=== PATIENT | female | born 2000 | race Caucasian/White ===

== ENCOUNTER → 2022-09-29 | Outpatient (CLI) | payer BC ==
--- NOTE | 2022-09-29 17:45 | CT ---
EXAMINATION TYPE: CT brain wo con DATE OF EXAM: 09/29/2022 COMPARISON: None HISTORY: Sharp pains on rt side of head x [address] DLP: 1041.[address] of the brain was performed. The ventricles, basal cisterns and sulci overlying the cerebral convexities demonstrate a normal appe arance. There is no evidence for intracranial hemorrhage or sulcal effacement. No mass effects are seen. Osseous calvarium is intact. If symptoms persist consider MRI as clinically warranted. IMPRESSION: 1. No acute intracranial process is seen at this time.
== END | disposition home or self-care (01) ==
LOC: RADCTMAIN 17:04
PROVIDERS: ATTEND Family Medicine
DX: G44.86 Cervicogenic headache (principal)
CPT/HCPCS: 70450

== ENCOUNTER → 2023-07-20 | Outpatient (CLI) | payer BC ==
--- NOTE | 2023-07-20 16:54 | US ---
EXAMINATION TYPE: US OB >= 14 wk fetus DATE OF EXAM: 07/20/2023 COMPARISON: None CLINICAL INDICATION: Female, 23 years old with history of decreased movement; Decreased m ovement today. TECHNIQUE: Transabdominal (TA) GESTATIONAL AGE / DATING Physician Established: (35 weeks/5 days) EDC: 08/19/23 Dates by First Scan: No previous this is first scan Dates by Current Scan: (35 weeks/6 days) EDC: 08/18/23 Beta HCG (if available): N/A SURVEY IUP: Single PLACENTA: Anterior PREVIA: No Previa MER: 11.48 cm Normal CERVICAL LENGTH (transabdominal: norm > 3.0cm): Not seen well due to shadowing BIOMETRY PRESENTATION: Breech LIE: Longitudinal BPD: 9.15 cm 37 weeks / 1 days HC: 32.9 cm 37 weeks / 3 days AC: 31.79 cm 35 weeks / 5 days FL: 6.88 cm 35 weeks / 2 days ESTIMATED WEIGHT IN GRAMS: 2810 grams ESTIMATED WEIGHT IN LBS/OZ: 6 lbs. 3 oz. WEIGHT PERCENTAGE BASED ON ESTABLISHED DATES: 56.6% HC/AC: 1.03 Normal FL/AC: 21.65 Normal HEART RATE: 144 bpm RHYTHM: Normal IMPRESSION: Single live intrauterine gestation ultrasound age 35 weeks 6 days.
[2023-07-20 17:19] LABS: Appearance,Urine Clear (Clear); Bilirubin,Urine Negative (Negative); Blood,Urine Negative (Negative); Color,Urine Colorless; Glucose,Urine (UA) Negative (Negative); Ketones,Urine Negative (Negative); Leukocyte Esterase,Urine Negative (Negative); Nitrite,Urine Negative (Negative); Protein,Urine Negative (Negative); Specific Gravity,Urine 1.005 (1.001-1.035); Urobilinogen,Urine <2.0 mg/dL (<2.0)
[2023-07-20 17:58] VITALS: BP 121/75; PULSE 109; RESP 16; TEMP 98
== END ==
LOC: FBPOP 15:27
PROVIDERS: ATTEND Obstetrics & Gynecology
DX: O36.8131 Decreased fetal movements, third trimester, fetus 1 (principal); Z3A.35 35 weeks gestation of pregnancy
CPT/HCPCS: 59025; 76805; 81003; 99213

== ENCOUNTER 2023-08-12 08:30 | Inpatient (IN) | payer BC ==
[2023-08-10 16:12] VITALS: BMI 25.9
[2023-08-12] MEDS: LACTATED RINGERS 1,000 ML IV SCH ×2 (09:00→19:48)
[2023-08-12] MEDS ORDERED: METHYLERGONOVINE 0.2 MG/ML 1 ML AMP IM PRN (09:02)
[2023-08-12] MEDS ORDERED: miSOPROStoL 200 MCG TAB PO PRN (09:02)
[2023-08-12] MEDS ORDERED: TRANEXAMIC 1,000 MG/100ML-NACL 1,000 MG in EMPTY BAG 1 BAG IV PRN (09:02)
[2023-08-12] MEDS ORDERED: OXYTOCIN 10 UNIT/ML 1 ML VIAL IM PRN (09:02)
[2023-08-12] MEDS ORDERED: CARBOPROST TROMETHAMINE 250 MCG/ML 1 ML AMP IM PRN (09:02)
[2023-08-12 09:23] LABS: Basophils % (A) 0 %; Eosinophils # (A) 0.1 k/uL (0-0.7); Eosinophils % (A) 1 %; HCT 38.4 % (34.0-46.0); HGB 13.1 gm/dL (11.4-16.0); Lymphocytes # (A) 2.1 k/uL (1.0-4.8); Lymphocytes % (A) 13 %; MCH 33.7 pg (25.0-35.0); MCHC 34.1 g/dL (31.0-37.0); MCV 98.8 fL (80.0-100.0); Mean Platelet Volume 9.1; Monocytes # (A) 0.8 k/uL (0-1.0); Monocytes % (A) 5 %; Neutrophils # (A) 12.4 k/uL (1.3-7.7); Neutrophils % (A) 79 %; Platelet Count 205 k/uL (150-450); RBC 3.89 m/uL (3.80-5.40); RDW 13.2 % (11.5-15.5); WBC 15.6 k/uL (3.8-10.6)
[2023-08-12 09:25] VITALS: RESP 16
[2023-08-12] MEDS: CITRIC ACID-SODIUM CITRATE 15 ML CUP PO ONE (09:36)
--- NOTE | 2023-08-12 10:00 | P.HPOB ---
History of Present Illness H&P Date: 08/12/23 Chief Complaint: Scheduled , breech presentation Ms. Doran is a 23 year old at 39 weeks and 0 days with EDC of 08/19/2023 by LMP consistent with 7 week US who presents today for scheduled primary section secondary to breech presentation. THe has been uncomplicated otherwise. The fetus measured in the 60%ile for growth at 32 weeks. work-up: blood type AB positive, antibody negative, rubella non-immune, VDRL non-reactive, HBsAg negative, HIV negative, HCV Ab negative, gonorrhea negative, chlamydia negative, 1 hour within normal limits. GBS negative. Patient is s/p TDap on 05/31/2023. Past Medical History Past Medical History: No Reported History History of Any Multi-Drug Resistant Organisms: None Reported Past Surgical History: No Surgical Hx Reported Past Anesthesia/Blood Transfusion Reactions: No Reported Reaction Past Psychological History: No Psychological Hx Reported Smoking Status: Never smoker Past Alcohol Use History: None Reported Past Drug Use History: None Reported - Past Family History Mother Family Medical History: No Reported History Medications and Allergies Home Medications Medication Instructions Recorded Confirmed Type Vit No.179/Iron/Folic 1 tablet PO DAILY 07/20/23 08/12/23 History [ Tablet] Allergies Allergy/AdvReac Type Severity Reaction Status Date / Time No Known Allergies Allergy Verified 08/10/23 15:47 Exam Vital Signs Temp Pulse Resp BP Pulse Ox 08/12/23 09:00 98.4 F 106 H 16 115/72 97 Intake and Output 08/11/23 08/12/23 08/12/23 22:59 06:59 14:59 Other: Weight 62.142 kg Focused physical exam is performed. This is a healthy-appearing in no apparent distress. Breathing is non-labored. Abdomen is gravid and non-tender. Extremities non-tender and non-edematous. heart tones are are reactive and reassuring on NST. Results Result Diagrams: 08/12/23 09:00 Abnormal Lab Results - Last 24 Hours (Table) 08/12/23 Range/Units 09:00 WBC 15.6 H (3.8-10.6) k/uL Neutrophils # 12.4 H (1.3-7.7) k/uL Assessment and Plan Assessment: 23 year old at 39 weeks and 0 days presenting for scheduled primary section for breech presentation Plan: Admit, NPO, IV antibiotics, protocol.
[2023-08-12] MEDS ORDERED: MORPHINE SULFATE (PF) 0.3 MG/0.3 ML SYR ONE (10:06)
[2023-08-12] MEDS ORDERED: fentaNYL (PF) 50 MCG/ML 2 ML AMP ONE (10:06)
[2023-08-12] MEDS ORDERED: OXYTOCIN 10 UNIT/ML 1 ML VIAL ONE (10:06)
[2023-08-12] MEDS ORDERED: KETOROLAC 15 MG/ML 1 ML VIAL ONE (10:06)
[2023-08-12] MEDS ORDERED: ONDANSETRON 4 MG/2 ML VIAL ONE (10:06)
[2023-08-12] MEDS ORDERED: ONDANSETRON 4 MG/2 ML VIAL IVP PRN ×2 (10:50→11:11)
[2023-08-12] MEDS ORDERED: NALOXONE 0.4 MG/ML 1 ML VIAL IV PRN ×2 (10:50→11:11)
[2023-08-12] MEDS ORDERED: diphenhydrAMINE 50 MG/ML 1 ML VIAL IVP PRN ×3 (10:50→11:11)
[2023-08-12] MEDS ORDERED: LANOLIN CREAM 1 GM TUBE TOPICAL PRN (11:11)
[2023-08-12] MEDS ORDERED: diphenhydrAMINE 50 MG CAP PO PRN (11:11)
[2023-08-12] MEDS ORDERED: SIMETHICONE 80 MG CHEWABLE PO PRN (11:11)
[2023-08-12] MEDS ORDERED: diphenhydrAMINE 25 MG CAP PO PRN (11:11)
[2023-08-12] MEDS ORDERED: ZOLPIDEM 5 MG TAB PO PRN (11:11)
[2023-08-12] MEDS ORDERED: METOCLOPRAMIDE 5 MG/ML 2 ML VIAL IVP PRN (11:11)
--- NOTE | 2023-08-12 11:11 | P.OP ---
Date of Procedure: 08/12/23 Preoperative Diagnosis: 1. Term IUP at 39 weeks 2. Complete Breech Presentation Postoperative Diagnosis: Same Procedure(s) Performed: Primary Lower Transverse Section Implants: None Anesthesia: spinal Surgeon: Nita Carlos Aerodynamics Teacher #1: Jame To Estimated Blood Loss (ml): 410 IV fluids (ml): 1,000 Urine output (ml): 400 (clear yellow) Pathology: none sent Condition: stable Disposition: floor Indications for Procedure: Ms. Doran is a 23 year old at 39 weeks gestation with a fetus in complete breech presentation. The options of external cephalic version and primary section were discussed with the patient and she elected for primary seciton. The risks, benefits, and alternatives to section were discussed with the patient including risk of bleeding, infection, damage to surrounding structures including bladder/bowels/ureters, and post-operative VTE. The patient understands these risks and desires to proceed with section. Operative Findings: Colorless amniotic fluid noted. Fetus in complete breech presentation. Normal uterus with a small pedunculated fibroid at the fundus. Normal bilateral fallopian tube and ovaries. Description of Procedure: The patient was taken to the operating room where spinal anesthesia was found to be adequate. Two grams of Ancef were given for infection prophylaxis. She was prepared and draped in the dorsal supine position with a leftward tilt. A Pfannenstiel skin incision was made with the scalpel. The incision was carried down to the fascia. The fascia was incised and extended laterally with Frank scissors. The superior aspect of the fascia was grasped with Andrea clamps. The underlying rectus muscle was dissected off sharply with Frank scissors. In a similar fashion, the inferior aspect of the fascia was elevated with Andrea clamps and the rectus muscle and pyramidalis were dissected off. Excellent hemostasis was achieved with the bovie. The rectus muscle was in the midline down to the level of the pubic symphysis. Pre-peritoneal fatty tissue was bluntly dissected to expose the peritoneum. The peritoneum was found to be free of adherent bowel and entered sharply with Frank scissors. The peritoneal incision was extended superiorly and inferiorly to the bladder reflection with good visualization of the bladder. The bladder blade was inserted and vesicouterine peritoneum was identified. Intraabdominal survey revealed scant, clear peritoneal fluid and the thinned-out lower uterine segment. The bladder blade was repositioned to keep the bladder out of the operative field. The lower uterine segment was incised with a scalpel. The amniotic sac was ruptured with a hemostat clamp and clear fluid was noted. The uterine incision was extended bluntly with lateral and upward traction. The fetus was in complete breech position. The buttocks was palpated and delivered gradually through the hysterotomy. Fundal pressure was continued and both legs were extended using the Pinard maneuver. With gentle pressure the legs and body gradually delivered. Once the scapula could be seen the baby was gently rotated and both arms were delivered using the Loveseat maneuver. Maintaining head flexion in a modified Yvvnwrlw-ptvmwmb-frsy maneuver the head was delivered without difficulty. The mouth and nose were suctioned with a bulb. The cord was clamped and cut. was noted to be spontaneously crying. The was handed off to the pediatric team. IV oxytocin was initiated to facilitate uterine contractions. The placenta was delivered intact with manual massage of uterine fundus. The uterus was then exteriorized and the inside of the uterus was gently wiped with a lap sponge to assure complete removal of placental membranes. The uterine incision was closed with a 0-Polysorb suture in a running locked fashion. A second imbricating layer of 0-Polysorb was placed along the incision. The ovaries and tubes were found to be normal. The uterus, tubes, and ovaries were then gently returned to the abdominal cavity. The blood clots and fluid were wiped out of the abdomen and pelvis with moist laparotomy sponges. The pelvis was copiously suction irrigated.The uterine incision was reinspected and excellent hemostasis was noted. The fascial layer was closed with a 0-Vicryl suture. The subcutaneous tissue was reapproximated with 2-0 Plain Gut. The skin was closed with 4-0 Monocryl in a subcuticular fashion. The patient tolerated the procedure well. All the counts were correct times two. The patient was taken to the recovery room in a stable condition.
[2023-08-12] MEDS: ACETAMINOPHEN TAB 500 MG TAB PO SCH (14:54)
[2023-08-12] MEDS: KETOROLAC 15 MG/ML 1 ML VIAL IVP SCH (18:20)
[2023-08-12] MEDS: IBUPROFEN 600 MG TAB PO SCH (19:47)
[2023-08-12] MEDS: SENNOSIDES-DOCUSATE SODIUM 1 EACH TAB PO SCH (21:06)
[2023-08-13 08:12] LABS: Basophils # (A) 0.1 k/uL (0-0.2); Basophils % (A) 0 %; Eosinophils # (A) 0.1 k/uL (0-0.7); Eosinophils % (A) 0 %; HCT 33.8 % (34.0-46.0); HGB 11.4 gm/dL (11.4-16.0); Lymphocytes # (A) 1.9 k/uL (1.0-4.8); Lymphocytes % (A) 8 %; MCH 33.8 pg (25.0-35.0); MCHC 33.8 g/dL (31.0-37.0); MCV 100.1 fL (80.0-100.0); Monocytes # (A) 1.2 k/uL (0-1.0); Monocytes % (A) 5 %; Neutrophils # (A) 19.5 k/uL (1.3-7.7); Neutrophils % (A) 85 %; Platelet Count 195 k/uL (150-450); RBC 3.37 m/uL (3.80-5.40); RDW 13.1 % (11.5-15.5)
--- NOTE | 2023-08-13 10:01 | P.PN ---
Progress Note - Text Progress Note Date: 08/13/23 (822) Anesthesia Postop day 1 Subjective: Status Post section with Duramorph. Patient seen and examined. Doing well without complaint. VAS 2 out of 10. No nausea or vomiting. Mild pruritus tolerable.. Denies fever. Gross lower extremity strength intact. Without apparent anesthetic complications. Objective: Vital signs reviewed Heart: Regular Rate Lungs: Good chest excursion Abdomen: Appears nondistended Assessment: Status post section with Duramorph postop day 1 Plan: 1. Continue current care with your medical management. Anticipated end to the duration of the Duramorph around surgery time today. You may see increased pain needs around this time. 2. This note was dictated using [employer]HE[employer] software. Please be advised there is a potential for misspellings or errors in remediation bioanalytics consultant.
--- NOTE | 2023-08-13 10:36 | P.PNOBGPC ---
Subjective - Subjective Patient reports: Reports appetite normal, Reports voiding normally, Reports pain well controlled, Reports ambulating normally : doing well Objective - Vital Signs Latest vital signs: Vital Signs Temp Pulse Resp BP Pulse Ox 08/13/23 08:00 98.6 F 78 16 103/75 98 08/12/23 20:00 93 16 115/72 95 08/12/23 18:30 16 99 08/12/23 17:00 16 08/12/23 16:00 98.7 F 97 16 114/70 98 08/12/23 15:50 98 08/12/23 14:49 97.1 F L 79 16 115/62 98 08/12/23 14:47 16 08/12/23 13:50 16 08/12/23 13:03 83 16 112/68 96 08/12/23 12:48 83 16 121/71 97 08/12/23 12:33 88 16 115/71 97 08/12/23 12:18 81 16 118/71 98 08/12/23 12:03 82 16 116/72 97 08/12/23 11:50 16 97 08/12/23 11:48 107 H 16 129/70 97 08/12/23 11:33 96 16 126/58 96 08/12/23 11:18 93 16 129/56 97 08/12/23 11:03 96.9 F L 102 H 16 118/73 97 08/12/23 10:50 16 97 Intake and Output 08/12/23 08/13/23 08/13/23 22:59 06:59 14:59 Output Total 600 1200 Balance -600 -1200 Output: Urine 600 1200 Uretheral (Lu) 400 Other: # Voids 1 - Exam Extremities: Present: normal Abdomen: Present: normal appearance, soft. Absent: distention, tenderness Incision: Present: normal, dry, intact Uterus: Present: normal, firm (The uterine fundus is tonic and appropriately tender just below the umbilicus.) - Labs Labs: Abnormal Lab Results - Last 24 Hours (Table) 08/13/23 Range/Units 07:49 WBC 23.0 H (3.8-10.6) k/uL RBC 3.37 L (3.80-5.40) m/uL Hct 33.8 L (34.0-46.0) % MCV 100.1 H (80.0-100.0) fL Neutrophils # 19.5 H (1.3-7.7) k/uL Monocytes # 1.2 H (0-1.0) k/uL Assessment and Plan (1) Delivery by section Current Visit: Yes Status: Acute Code(s): [id number] - SNOMED Code(s): 686668760 Plan: Continue routine and postoperative care. I have encouraged the patient to ambulate in the hallways routinely. Assuming no complications, I anticipate discharge home tomorrow.
[2023-08-14 08:09] VITALS: BP 108/72; PULSE 86; TEMP 97
--- NOTE | 2023-08-14 11:11 | P.DS ---
Providers Date of admission: 08/12/23 08:30 Expected date of discharge: 08/14/23 Attending physician: Nita Carlos MD Primary care physician: Stated None - Discharge Diagnosis(es) (1) Delivery by section Current Visit: Yes Status: Acute Hospital Course: The patient is a 23-year-old 1 para 0 admitted at 39-0/7 weeks by good dating parameters. She is admitted for primary low-transverse section secondary to breech presentation. She was offered version which she declined. On labor delivery, all signs were reassuring with category 1 heart rate tracing. She was taken to the operating room where she underwent an uncomplicated primary low-transverse section and was delivered of a viable 8 pound 13 ounce baby girl with Apgars of 9 at 1 minute and 9 at 5 minutes. Her and postoperative course was unremarkable with vital signs remaining stable and her temperature was afebrile throughout. She was deemed stable for discharge on and postoperative day #2 and was discharged home to follow-up in the office in 2 weeks for an incision check in 6 weeks routinely. Discharge instructions included calling for any significantly increased bleeding or foul-smelling lochia, significantly increased fever or abdominal pain, peritoneal complaints, breast complaints, incisional complaints, or anything else that concerned her. She was additionally instructed to have nothing in the vagina for at least 6 weeks time to include intercourse and to abstain from any heavy lifting over the same period of time. She was lastly instructed to do no driving until off of all pain medications or 2 weeks time, whichever came first. She understood all of her instructions and agrees to follow-up as noted above. Discharge medications included continued vitamins as well as [id number] analgesic pain medications as needed. She was additionally provided with a prescription for Tylenol 3, 1-2 p.o. every 6 hours as needed pain, #20 dispensed with no refills. Maternal blood type is AB+ and rubella status is nonimmune. She is therefore to receive the MMR vaccination prior to discharge. Discharge hemoglobin and hematocrit were 11.4 and 33.8 respectively Procedures: #1. Primary low-transverse section Patient Condition at Discharge: Stable Plan - Discharge Summary Discharge Rx Participant: Yes New Discharge Prescriptions: New oxyCODONE HCL [Roxicodone] 5 mg PO Q6HR PRN 3 Days #12 tab PRN Reason: Breakthrough Pain Acetaminophen Tab [Tylenol] 650 mg PO Q6H PRN #30 tab PRN Reason: Mild Pain (Scale 1 To 3) Ibuprofen [Motrin] 600 mg PO Q6HR PRN #30 tab PRN Reason: Mild Pain (Scale 1 To 3) No Action Vit No.179/Iron/Folic [ Tablet] 1 tablet PO DAILY Discharge Medication List Vit No.179/Iron/Folic [ Tablet] 1 tablet PO DAILY 07/20/23 [History] Acetaminophen Tab [Tylenol] 650 mg PO Q6H PRN #30 tab 08/12/23 [Rx] Ibuprofen [Motrin] 600 mg PO Q6HR PRN #30 tab 08/12/23 [Rx] oxyCODONE HCL [Roxicodone] 5 mg PO Q6HR PRN 3 Days #12 tab 08/12/23 [Rx] Follow up Appointment(s)/Referral(s): Nita Carlos MD [STAFF PHYSICIAN] - 2 Weeks Activity/Diet/Wound Care/Special Instructions: Instructions 1. Do not begin any exercise program for 3 weeks. 2. Do not resume sexual relations for 6 weeks or longer if uncomfortable. 3. You may take tub baths or showers at any time. 4. You may use tampons if desired after 6 weeks. 5. Keep any areas repaired with stitches clean and dry. 6. If you are not nursing, wear a good fitting, supportive bra during the day and limit fluid intake for at least 1 week to prevent breast engorgement. 7. Call the office, , within the next week to make appointment for your 6 week checkup if it has not already been made. 8. Report any of the following occurrences to the doctor promptly: a. Heavy, excessive bleeding b. Chills, fever c. Burning or frequency of urination d. Pain or redness and breasts if nursing e. Increasing pain or swelling of vulva (stitches). In addition to the above instructions, the following additional should be followed: 1. No heavy lifting or straining (exercising) until after 6 week checkup. 2. Keep abdominal incision clean and dry: You may wear a dressing if more comfortable. 3. Make office appointment for 2 weeks after delivery date. Discharge Disposition: HOME SELF-CARE
== END 2023-08-14 13:35 | disposition home or self-care (01) | DRG 788 ==
LOC: 4FBP 08:30
PROVIDERS: ADMIT Obstetrics & Gynecology; ATTEND Obstetrics & Gynecology
PROC: 4A0HXCZ Measurement of Products of Conception, Cardiac Rate, External Approach (ICD-10-PCS; 2023-08-12)
PROC: 10D00Z1 Extraction of Products of Conception, Low, Open Approach (ICD-10-PCS; principal; 2023-08-12 10:00)
DX: O32.1XX0 Maternal care for breech presentation, not applicable or unspecified (principal); O34.13 Maternal care for benign tumor of corpus uteri, third trimester; Z3A.39 39 weeks gestation of pregnancy; Z37.0 Single live birth; L29.9 Pruritus, unspecified; D25.9 Leiomyoma of uterus, unspecified; O99.73 Diseases of the skin and subcutaneous tissue complicating the puerperium
CPT/HCPCS: 85025; 86850; 86900; 86901

== ENCOUNTER 2023-12-12 14:42 | Emergency (ER) | payer BC ==
--- NOTE | 2023-12-12 15:29 | ED ---
Back Pain HPI - General Chief Complaint: Back Pain/Injury Stated Complaint: Abd/back pain Time Seen by Provider: 12/12/23 15:23 Source: patient, family, RN notes reviewed Limitations: no limitations - History of Present Illness Initial Comments: 23-year-old female presented to the ER with a chief complaint of right flank pain. Family aiding in HPI. Patient reports pain started around 1 :30 PM and has been persistent and sharp. She endorses mild radiation to right abdomen. A dmits to associated nausea and vomiting. Patient states pain is exacerbated with laying flat and she is only comfortable in the position. Denies any hematuria but does state an increase in urinary frequency yesterday. She attempted to take prescribed oxycodone from recent section but was unable to keep it down. She denies a personal history of kidney stones but does state there is an extensive family history. She denies any fevers, chills, chest pain, shortness of breath or peripheral edema. - Related Data Home Medications Medication Instructions Recorded Confirmed Vit No.179/Iron/Folic 1 tablet PO DAILY 07/20/23 08/12/23 [ Tablet] Previous Rx's Medication Instructions Recorded Acetaminophen Tab [Tylenol] 650 mg PO Q6H PRN #30 tab 08/12/23 Ibuprofen [Motrin] 600 mg PO Q6HR PRN #30 tab 08/12/23 oxyCODONE HCL [Roxicodone] 5 mg PO Q6HR PRN 3 Days #12 tab 08/12/23 HYDROcodone/APAP 5-325MG [[place] 5] 1 each PO Q6HR PRN #12 tab 12/12/23 Ondansetron Odt [Zofran Odt] 4 mg PO Q8HR PRN #10 tab 12/12/23 Tamsulosin [Flomax] 0.4 mg PO DAILY #7 cap 12/12/23 Allergies Allergy/AdvReac Type Severity Reaction Status Date / Time No Known Allergies Allergy Verified 12/12/23 14:57 Review of Systems ROS Statement: Those systems with pertinent positive or pertinent negative responses have been documented in the HPI. ROS Other: All systems not noted in ROS Statement are negative. Past Medical History Past Medical History: No Reported History History of Any Multi-Drug Resistant Organisms: None Reported Past Surgical History: No Surgical Hx Reported Additional Past Surgical History / Comment(s): Past Anesthesia/Blood Transfusion Reactions: No Reported Reaction Past Psychological History: No Psychological Hx Reported Smoking Status: Never smoker Past Alcohol Use History: None Reported Past Drug Use History: None Reported - Past Family History Mother Family Medical History: No Reported History General Exam Limitations: no limitations General appearance: alert, in no apparent distress Respiratory exam: Present: normal lung sounds bilaterally. Absent: respiratory distress, wheezes, rales, rhonchi, stridor Cardiovascular Exam: Present: regular rate, normal rhythm, normal heart sounds. Absent: systolic murmur, diastolic murmur, rubs, gallop, clicks GI/Abdominal exam: Present: soft, tenderness (right ), normal bowel sounds Back exam: Present: normal inspection Neurological exam: Present: alert, oriented X3, CN II-XII intact Skin exam: Present: warm, dry, intact, normal color. Absent: rash Course Vital Signs 12/12/23 12/12/23 12/12/23 14:53 16:42 19:06 Temperature 98.0 F 98.9 F Pulse Rate 79 117 H 76 Respiratory 17 18 Rate Blood Pressure 123/77 117/74 121/75 O2 Sat by Pulse 99 100 Oximetry Medical Decision Making - Medical Decision Making Was pt. sent in by a medical professional or institution (, PA, [employer], urgent care, hospital, or senior living...) When possible be specific @ -No Did you speak to anyone other than the patient for history (EMS, parent, family, police, friend...)? What history was obtained from this source @ -Family aiding in HPI and PMHx. Did you review nursing and triage notes (agree or disagree)? Why? @ -I reviewed and agree with nursing and triage notes Were old charts reviewed (outside hosp., previous admission, EMS record, old EKG, old radiological studies, urgent care reports/EKG's, senior living records)? Report findings @ -No old charts were reviewed Differential Diagnosis (chest pain, altered mental status, abdominal pain women, abdominal pain men, vaginal bleeding, weakness, fever, dyspnea, syncope, headache, dizziness, GI bleed, back pain, seizure, CVA, palpatations, mental health, musculoskeletal)? @ -Differential Abdominal Pain Women: Appendicitis, Cholecystitis, diverticulosis, ischemic bowel, pancreatitis, hepatitis, UTI, gastroenteritis, AAA, incarcerated hernia, bowel obstruction, constipation, inflammatory bowel, hepatitis, peptic ulcer disease, splenic infarction, perforated viscus, vulvitis, ovarian torsion, PID, kidney stone, placenta abruption, this is not meant to be an all-inclusive list EKG interpreted by me (3pts min.). @ -None X-rays interpreted by me (1pt min.). @ -None done CT interpreted by me (1pt min.). @ -CT abdomen pelvis significant for right hydronephrosis secondary to obstructing 6 mm calculus at the UVJ. Additional nonobstructing 2 mm. No left- sided hydronephrosis or obstructive uropathy. U/S interpreted by me (1pt. min.). @ -None done What testing was considered but not performed or refused? (CT, X-rays, U/S, labs)? Why? @ -None What meds were considered but not given or refused? Why? @ -None Did you discuss the management of the patient with other professionals (professionals i.e. , PA, [employer], lab, RT, psych nurse, hospice social worker, loan inspector, teacher, investment officer, transplant case manager)? Give summary @ -No Was smoking cessation discussed for >3mins.? @ -No Was critical care preformed (if so, how long)? @ -No Were there social determinants of health that impacted care today? How? (Homelessness, low income, unemployed, alcoholism, drug addiction, transportation, low edu. Level, literacy, decrease access to med. care, penitentiary, rehab)? @ -No Was there de-escalation of care discussed even if they declined (Discuss DNR or withdrawal of care, Hospice)? DNR status @ -No What co-morbidities impacted this encounter? (DM, HTN, Smoking, COPD, CAD, Cancer, CVA, ARF, Chemo, Hep., AIDS, mental health diagnosis, sleep apnea, morbid obesity)? @ -None Was patient admitted / discharged? Hospital course, mention meds given and route, prescriptions, significant lab abnormalities, going to OR and other pert inent info. @ -Discharge. 23-year-old female presented to the ER with a chief complaint of right flank pain. History and physical exam completed. Vitals stable. Exam remarkable for right lower quadrant abdominal tenderness. No CVA tenderness. Patient no signs of acute distress and nontoxic-appearing. Laboratory studies obtained unremarkable. Urine analysis significant of 2+ ketones concerning of dehydration. Urine hCG negative. CT abdomen pelvis performed remarkable for right hydronephrosis secondary to obstructing 6 mm calculus at the UVJ. Patient received IV fluids, antiemetics and analgesics medication with improvement of symptoms. Upon reevaluation, patient resting comfortably in exam room in no signs of acute distress. Results discussed with patient, all questions answered. Flomax, [place], Zofran prescribed. Strict return parameters discussed. Patient discharged in stable condition with follow-up to PCP. Patient verbally expressed understanding and agreement with care plan. Case discussed with ED attending, Dr. Kate. Undiagnosed new problem with uncertain prognosis? @ -No Drug Therapy requiring intensive monitoring for toxicity (Heparin, Nitro, Insulin, Cardizem)? @ -No Were any procedures done? @ -No Diagnosis/symptom? @ -Right hydronephrosis secondary to obstructing calculus Acute, or Chronic, or Acute on Chronic? @ -Acute Uncomplicated (without systemic symptoms) or Complicated (systemic symptoms)? @ -Uncomplicated Side effects of treatment? @ -No Exacerbation, Progression, or Severe Exacerbation? @ -No Poses a threat to life or bodily function? How? (Chest pain, [place], [place], pneumonia, PE, COPD, DKA, ARF, appy, cholecystitis, CVA, Diverticulitis, Homicidal, Suicidal, threat to staff... and all critical care pts) @ -No - Lab Data Result diagrams: 12/12/23 15:36 12/12/23 15:36 Lab Results 12/12/23 12/12/23 12/12/23 Range/Units 15:36 15:36 15:36 WBC 10.0 (3.8-10.6) k/uL RBC 4.21 (3.80-5.40) m/uL Hgb 12.8 (11.4-16.0) gm/dL Hct 39.9 (34.0-46.0) % MCV 94.8 (80.0-100.0) fL MCH 30.3 (25.0-35.0) pg MCHC 32.0 (31.0-37.0) g/dL RDW 12.2 (11.5-15.5) % Plt Count 248 (150-450) k/uL MPV 8.4 Neutrophils % 64 % Lymphocytes % 28 % Monocytes % 5 % Eosinophils % 1 % Basophils % 0 % Neutrophils # 6.4 (1.3-7.7) k/uL Lymphocytes # 2.8 (1.0-4.8) k/uL Monocytes # 0.5 (0-1.0) k/uL Eosinophils # 0.1 (0-0.7) k/uL Basophils # 0.0 (0-0.2) k/uL Sodium (137-145) mmol/L Potassium (3.5-5.1) mmol/L Chloride (98-107) mmol/L Carbon Dioxide (22-30) mmol/L Anion Gap mmol/L BUN (7-17) mg/dL Creatinine (0.52-1.04) mg/dL Est GFR (CKD-EPI)AfAm (>60 ml/min/1.73 sqM) Est GFR (CKD-EPI)NonAf (>60 ml/min/1.73 sqM) Glucose (74-99) mg/dL Plasma Lactic Acid [place] (0.7-2.0) mmol/L Calcium (8.4-10.2) mg/dL Total Bilirubin (0.2-1.3) mg/dL AST (14-36) U/L ALT (4-34) U/L Alkaline Phosphatase (38-126) U/L Total Protein (6.3-8.2) g/dL Albumin (3.5-5.0) g/dL Urine Color Colorless Urine Appearance Clear (Clear) Urine pH 8.5 H (5.0-8.0) Ur Specific [place] 1.020 (1.001-1.035) Urine Protein Negative (Negative) Urine Glucose (UA) Negative (Negative) Urine Ketones 2+ H (Negative) Urine Blood Negative (Negative) Urine Nitrite Negative (Negative) Urine Bilirubin Negative (Negative) Urine Urobilinogen <2.0 (<2.0) mg/dL Ur Leukocyte Esterase Negative (Negative) Urine HCG, Qual Not Detected (Not Detectd) 12/12/23 12/12/23 Range/Units 15:36 15:36 WBC (3.8-10.6) k/uL RBC (3.80-5.40) m/uL Hgb (11.4-16.0) gm/dL Hct (34.0-46.0) % MCV (80.0-100.0) fL MCH (25.0-35.0) pg MCHC (31.0-37.0) g/dL RDW (11.5-15.5) % Plt Count (150-450) k/uL MPV Neutrophils % % Lymphocytes % % Monocytes % % Eosinophils % % Basophils % % Neutrophils # (1.3-7.7) k/uL Lymphocytes # (1.0-4.8) k/uL Monocytes # (0-1.0) k/uL Eosinophils # (0-0.7) k/uL Basophils # (0-0.2) k/uL Sodium 141 (137-145) mmol/L Potassium 4.0 (3.5-5.1) mmol/L Chloride 108 H (98-107) mmol/L Carbon Dioxide 23 (22-30) mmol/L Anion Gap 10 mmol/L BUN 13 (7-17) mg/dL Creatinine 0.61 (0.52-1.04) mg/dL Est GFR (CKD-EPI)AfAm >90 (>60 ml/min/1.73 sqM) Est GFR (CKD-EPI)NonAf >90 (>60 ml/min/1.73 sqM) Glucose 85 (74-99) mg/dL Plasma Lactic Acid [place] 1.5 (0.7-2.0) mmol/L Calcium 9.3 (8.4-10.2) mg/dL Total Bilirubin 0.3 (0.2-1.3) mg/dL AST 30 (14-36) U/L ALT 32 (4-34) U/L Alkaline Phosphatase 96 (38-126) U/L Total Protein 7.2 (6.3-8.2) g/dL Albumin 4.5 (3.5-5.0) g/dL Urine Color Urine Appearance (Clear) Urine pH (5.0-8.0) Ur Specific [place] (1.001-1.035) Urine Protein (Negative) Urine Glucose (UA) (Negative) Urine Ketones (Negative) Urine Blood (Negative) Urine Nitrite (Negative) Urine Bilirubin (Negative) Urine Urobilinogen (<2.0) mg/dL Ur Leukocyte Esterase (Negative) Urine HCG, Qual (Not Detectd) - Radiology Data Radiology results: report reviewed, image reviewed Disposition Clinical Impression: Hydronephrosis concurrent with and due to calculi of kidney and ureter Disposition: HOME SELF-CARE Condition: Stable Instructions (If sedation given, give patient instructions): Kidney Stones (ED) Additional Instructions: If taking [place] for pain control I recommend not breast-feeding, pump and dump for 1 day after use. You may take Zofran for nausea. Take Flomax as prescribed. Follow-up with PCP. Return to the ER for any new or worsening concerns. Prescriptions: Tamsulosin [Flomax] 0.4 mg PO DAILY #7 cap HYDROcodone/APAP 5-325MG [[place] 5] 1 each PO Q6HR PRN #12 tab PRN Reason: Pain Ondansetron Odt [Zofran Odt] 4 mg PO Q8HR PRN #10 tab PRN Reason: Nausea Is patient prescribed a controlled substance at d/c from ED?: Yes When asked, does pt state using other controlled substances?: No If prescribed controlled substance>3 days was MAPS reviewed?: Prescribed <3 Days If opioid is for acute pain is fill amount 7 days or less?: Yes If Rx opioid, was Start Talking consent form obtained?: Yes Referrals: Nell Madrigal MD [Primary Care Provider] - 1-2 days Time of Disposition: 18:49
[2023-12-12] MEDS: ONDANSETRON 4 MG/2 ML VIAL IVP STA (15:31)
[2023-12-12] MEDS: SODIUM CHLORIDE 0.9% 1,000 ML IV STA ×2 (15:31→18:10)
[2023-12-12] MEDS: HYDROmorphone 0.5 MG/0.5 ML SYRINGE IVP STA (15:32)
[2023-12-12 15:55] LABS: Basophils % (A) 0 %; Eosinophils # (A) 0.1 k/uL (0-0.7); Eosinophils % (A) 1 %; HCT 39.9 % (34.0-46.0); HGB 12.8 gm/dL (11.4-16.0); Lymphocytes # (A) 2.8 k/uL (1.0-4.8); Lymphocytes % (A) 28 %; MCH 30.3 pg (25.0-35.0); MCV 94.8 fL (80.0-100.0); Mean Platelet Volume 8.4; Monocytes # (A) 0.5 k/uL (0-1.0); Monocytes % (A) 5 %; Neutrophils # (A) 6.4 k/uL (1.3-7.7); Neutrophils % (A) 64 %; Platelet Count 248 k/uL (150-450); RBC 4.21 m/uL (3.80-5.40); RDW 12.2 % (11.5-15.5)
[2023-12-12 16:11] LABS: ALT 32 U/L (4-34); AST 30 U/L (14-36); African American GFR (CKD) >90 (>60 ml/min/1.73 sqM); Albumin 4.5 g/dL (3.5-5.0); Alkaline Phosphatase 96 U/L (38-126); Anion Gap 10 mmol/L; Blood Urea Nitrogen 13 mg/dL (7-17); Calcium 9.3 mg/dL (8.4-10.2); Carbon Dioxide 23 mmol/L (22-30); Chloride 108 mmol/L (98-107); Glucose 85 mg/dL (74-99); Non-African American GFR(CKD) >90 (>60 ml/min/1.73 sqM); Sodium 141 mmol/L (137-145); Total Bilirubin 0.3 mg/dL (0.2-1.3); Total Protein 7.2 g/dL (6.3-8.2)
[2023-12-12 16:43] LABS: Appearance,Urine Clear (Clear); Bilirubin,Urine Negative (Negative); Blood,Urine Negative (Negative); Color,Urine Colorless; Glucose,Urine (UA) Negative (Negative); Leukocyte Esterase,Urine Negative (Negative); Nitrite,Urine Negative (Negative); PH, Urine 8.5 (5.0-8.0); Protein,Urine Negative (Negative); Urobilinogen,Urine <2.0 mg/dL (<2.0)
[2023-12-12] MEDS: HYDROmorphone 1 MG/ML 1 ML SYRINGE IVP STA (16:45)
[2023-12-12] MEDS: METOCLOPRAMIDE 5 MG/ML 2 ML VIAL IVP STA (16:47)
[2023-12-12 17:06] LABS: Ketones,Urine 2+ (Negative)
--- NOTE | 2023-12-12 18:28 | CT ---
EXAMINATION TYPE: CT abdomen pelvis wo con CT DLP: 320 mGycm, Automated exposure control for dose reduction was used. DATE OF EXAM: 12/12/2023 5:45 PM COMPARISON: None. CLINICAL INDICATION:Female, 23 years old with history of r flank pain; Right flank pain TECHNIQUE: Axial CT abdomen pelvis wo con;Sagittal and coronal reformats were created on a separate workstation. Contrast used: mL of , (none if empty) Oral contrast used: without Oral Contrast (none if empty) FINDINGS: LOWER CHEST: Unremarkable ABDOMEN LIVER: Unremarkable GALLBLADDER AND BILE DUCTS: Unremarkable. PANCREAS: Unremarkable. SPLEEN: Unremarkable. ADRENAL GLANDS: Unremarkable. KIDNEYS AND URETERS: Mild right hydronephrosis secondary obstructing 6 mm calculus at the ureterovesi cular junction. Additional nonobstructing 2 mm. No left hydronephrosis or obstructive uropathy. PELVIS BLADDER: Unremarkable REPRODUCTIVE: Unremarkable. ABDOMEN & PELVIS STOMACH AND BOWEL: No evidence of bowel obstruction. PERITONEUM/RETROPERITONEUM: No evidence of pneumoperitoneum or free fluid. VASCULATURE: No evidence of aortic aneurysm. MUSCULOSKELETAL: No acute osseous abnormalities LYMPH NODES: No gross evidence for lymphadenopathy. SOFT TISSUE/ABDOMINAL WALL: Unremarkable IMPRESSION: Mild right hydronephrosis secondary obstructing 6 mm calculus at the ureterovesicular junction. Addit ional nonobstructing 2 mm. No left hydronephrosis or obstructive uropathy.
[2023-12-12] MEDS: SCOPOLAMINE 1 MG/72 HR PATCH TRANSDERM STA (18:34)
[2023-12-12 19:08] VITALS: BP 121/75; PULSE 76; RESP 18; TEMP 98.9
== END 2023-12-12 19:08 | disposition home or self-care (01) ==
LOC: EC 14:42
DX: N13.2 Hydronephrosis with renal and ureteral calculous obstruction (principal)
CPT/HCPCS: 36415; 80053; 83605; 85025; 81003; 81025; 74176; 99284; 96374; 96375 ×2; 96376; 96361 ×2; J2765; J2405; J1170 ×2

== ENCOUNTER 2023-12-13 11:39 | Observation (INO) | payer BC ==
--- NOTE | 2023-12-13 11:55 | ED ---
Abdominal Pain HPI - General Chief Complaint: Abdominal Pain Stated Complaint: Recheck-abd pain Time Seen by Provider: 12/13/23 11:41 Source: patient, RN notes reviewed Mode of arrival: ambulatory Limitations: no limitations - History of Present Illness Initial Comments: This is a 23-year-old female who presents to the emergency department for abdominal pain and right flank pain. Patient was evaluated here yesterday for right flank pain and diagnosed with a kidney stone. She was given a prescription for nausea medication and pain medication, but states that she is unable to manage her symptoms at home and continues to vomit. She does note that she had a kidney stone about 5 years ago but was able to pass it on her own. Symptoms are much more severe now than they had been. She has not measured any fevers or chills. MD Complaint: abdominal pain, flank pain - Related Data Home Medications Medication Instructions Recorded Confirmed Vit No.179/Iron/Folic 1 tablet PO DAILY 07/20/23 12/13/23 [ Tablet] HYDROcodone/APAP 5-325MG [[place] 5] 1 tab PO Q6HR PRN 12/13/23 12/13/23 Previous Rx's Medication Instructions Recorded Ondansetron Odt [Zofran Odt] 4 mg PO Q8HR PRN #10 tab 12/12/23 Tamsulosin [Flomax] 0.4 mg PO DAILY #7 cap 12/12/23 Allergies Allergy/AdvReac Type Severity Reaction Status Date / Time No Known Allergies Allergy Verified 12/13/23 15:00 Review of Systems ROS Statement: Those systems with pertinent positive or pertinent negative responses have been documented in the HPI. ROS Other: All systems not noted in ROS Statement are negative. Past Medical History Past Medical History: No Reported History History of Any Multi-Drug Resistant Organisms: None Reported Past Surgical History: No Surgical Hx Reported Additional Past Surgical History / Comment(s): Past Anesthesia/Blood Transfusion Reactions: No Reported Reaction Past Psychological History: No Psychological Hx Reported Smoking Status: Never smoker Past Alcohol Use History: None Reported Past Drug Use History: None Reported - Past Family History Mother Family Medical History: No Reported History General Exam Limitations: no limitations General appearance: alert, in distress Head exam: Present: atraumatic, normocephalic, normal inspection Respiratory exam: Present: normal lung sounds bilaterally. Absent: respiratory distress, wheezes, rales, rhonchi, stridor Cardiovascular Exam: Present: regular rate, normal rhythm, normal heart sounds. Absent: systolic murmur, diastolic murmur, rubs, gallop, clicks GI/Abdominal exam: Present: soft, tenderness (RLQ). Absent: distended Back exam: Present: CVA tenderness (R). Absent: CVA tenderness (L) Neurological exam: Present: alert, oriented X3, CN II-XII intact Psychiatric exam: Present: normal affect, normal mood Skin exam: Present: warm, dry, intact, normal color. Absent: rash Course Vital Signs 12/13/23 11:39 Temperature 99 F Pulse Rate 109 H Respiratory 18 Rate Blood Pressure 109/73 O2 Sat by Pulse 100 Oximetry Medical Decision Making - Medical Decision Making This is a 23 year old female who presents to the emergency department for right flank pain. Was pt. sent in by a medical professional or institution? @ -No Did you speak to anyone other than the patient for history? @ -No Did you review nursing and triage notes? @ -Yes, and I agree, it is accurate with regards to the patient's symptoms. Were old charts reviewed? @ -CT scan of the abdomen and pelvis from yesterday demonstrating mild right hydronephrosis secondary to obstructing 6 mm calculus at the UVJ. Differential Diagnosis? @ -Differential Abdominal Pain Women: Appendicitis, Cholecystitis, diverticulosis, ischemic bowel, pancreatitis, hepatitis, UTI, gastroenteritis, AAA, incarcerated hernia, bowel obstruction, constipation, inflammatory bowel, hepatitis, peptic ulcer disease, splenic infarction, perforated viscus, vulvitis, ovarian torsion, PID, kidney stone, placenta abruption, this is not meant to be an all-inclusive list EKG interpreted by me (3pts min.)? @ -Not obtained X-rays interpreted by me (1pt min.)? @ -Not obtained CT interpreted by me (1pt min.)? @ -Not obtained U/S interpreted by me (1pt. min.)? @ -Not obtained What testing was considered but not performed? (CT, X-rays, U/S, labs)? Why? @ -None What meds were considered but not given? Why? @ -None Did you discuss the management of the patient with other professionals? @ -Yes, Dr. Adkins, urology, who will take the patient to the OR for stone removal due to patient's intractable symptoms. Did you reconcile home meds? @ -Yes Was smoking cessation discussed for >3mins.? @ -No Was critical care preformed (if so, how long)? @ -No Were there social determinants of health that impacted care today? How? (Homelessness, low income, unemployed, alcoholism, drug addiction, transportation, low edu. Level, literacy, decrease access to med. care, half-way, rehab)? @ -No Was there de-escalation of care discussed even if they declined? (Discuss DNR or withdrawal of care, Hospice)? @ -No What co-morbidities impacted this encounter? (DM, HTN, Smoking, COPD, CAD, Cancer, CVA, Hep., AIDS, mental health diagnosis, sleep apnea, morbid obesity)? @ -None Was patient admitted / discharged? @ -Admitted. Lab work demonstrates leukocytosis and was otherwise unremarkable. Urinalysis negative for signs of infection. CT scan of the abdomen and pelvis from yesterday reviewed demonstrating hydronephrosis secondary to obstructing 6 mm calculus at the UVJ. Case discussed with Dr. Adkins, urology, given the patient's failure of outpatient management in terms of pain and intractable nausea and vomiting. He will take patient to the OR later today for stone removal. Patient kept NPO. Blood cultures obtained and she was given 2 g of ceftriaxone along with IV fluids. Undiagnosed new problem with uncertain prognosis? @ -None Drug Therapy requiring intensive monitoring for toxicity (Heparin, Nitro, Insuli n, Cardizem)? @ -None Were any procedures done? @ -None Diagnosis/symptom? @ -Right ureteral calculus, intractable abdominal pain, intractable nausea and vomiting Acute, or Chronic, or Acute on Chronic? @ -Acute Uncomplicated (without systemic symptoms) or Complicated (systemic symptoms)? @ -Complicated Side effects of treatment? @ -None Exacerbation, Progression, or Severe Exacerbation] @ -Not applicable Poses a threat to life or bodily function? @ -Yes, patient unable to function due to pain. This case was discussed in detail with the attending ED physician, Dr. Tabares. Presentation, findings, and treatment plan discussed in detail as well. - Lab Data Result diagrams: 12/13/23 11:52 12/13/23 11:52 Lab Results 12/13/23 12/13/2324 Range/Units 11:52 11:52 11:52 WBC 15.0 H (3.8-10.6) k/uL RBC 4.32 (3.80-5.40) m/uL Hgb 13.6 (11.4-16.0) gm/dL Hct 41.8 (34.0-46.0) % MCV 96.7 (80.0-100.0) fL MCH 31.4 (25.0-35.0) pg MCHC 32.5 (31.0-37.0) g/dL RDW 12.3 (11.5-15.5) % Plt Count 290 (150-450) k/uL MPV 8.4 Neutrophils % 82 % Lymphocytes % 10 % Monocytes % 7 % Eosinophils % 0 % Basophils % 0 % Neutrophils # 12.2 H (1.3-7.7) k/uL Lymphocytes # 1.6 (1.0-4.8) k/uL Monocytes # 1.1 H (0-1.0) k/uL Eosinophils # 0.0 (0-0.7) k/uL Basophils # 0.0 (0-0.2) k/uL Sodium 139 (137-145) mmol/L Potassium 4.4 (3.5-5.1) mmol/L Chloride 107 (98-107) mmol/L Carbon Dioxide 14 L (22-30) mmol/L Anion Gap 18 mmol/L BUN 17 (7-17) mg/dL Creatinine 0.90 (0.52-1.04) mg/dL Est GFR (CKD-EPI)AfAm >90 (>60 ml/min/1.73 sqM) Est GFR (CKD-EPI)NonAf 90 (>60 ml/min/1.73 sqM) Glucose 74 (74-99) mg/dL Plasma Lactic Acid [place] (0.7-2.0) mmol/L Calcium 10.0 (8.4-10.2) mg/dL Total Bilirubin 1.5 H (0.2-1.3) mg/dL AST 25 (14-36) U/L ALT 29 (4-34) U/L Alkaline Phosphatase 96 (38-126) U/L Total Protein 7.7 (6.3-8.2) g/dL Albumin 5.1 H (3.5-5.0) g/dL Amylase 62 (30-110) U/L Lipase 146 (23-300) U/L HCG, Qual Not Detected Urine Color Light Yellow Urine Appearance Clear (Clear) Urine pH 6.0 (5.0-8.0) Ur Specific [place] 1.031 (1.001-1.035) Urine Protein 1+ H (Negative) Urine Glucose (UA) Negative (Negative) Urine Ketones 4+ H (Negative) Urine Blood Small H (Negative) Urine Nitrite Negative (Negative) Urine Bilirubin Negative (Negative) Urine Urobilinogen <2.0 (<2.0) mg/dL Ur Leukocyte Esterase Negative (Negative) Urine RBC 7 H (0-5) /hpf Urine WBC 14 H (0-5) /hpf Ur Squamous Epith Cells 1 (0-4) /hpf Urine Mucus Rare H (None) /hpf Urine HCG, Qual (Not Detectd) 12/13/23 12/13/23 Range/Units 11:52 11:52 WBC (3.8-10.6) k/uL RBC (3.80-5.40) m/uL Hgb (11.4-16.0) gm/dL Hct (34.0-46.0) % MCV (80.0-100.0) fL MCH (25.0-35.0) pg MCHC (31.0-37.0) g/dL RDW (11.5-15.5) % Plt Count (150-450) k/uL MPV Neutrophils % % Lymphocytes % % Monocytes % % Eosinophils % % Basophils % % Neutrophils # (1.3-7.7) k/uL Lymphocytes # (1.0-4.8) k/uL Monocytes # (0-1.0) k/uL Eosinophils # (0-0.7) k/uL Basophils # (0-0.2) k/uL Sodium (137-145) mmol/L Potassium (3.5-5.1) mmol/L Chloride (98-107) mmol/L Carbon Dioxide (22-30) mmol/L Anion Gap mmol/L BUN (7-17) mg/dL Creatinine (0.52-1.04) mg/dL Est GFR (CKD-EPI)AfAm (>60 ml/min/1.73 sqM) Est GFR (CKD-EPI)NonAf (>60 ml/min/1.73 sqM) Glucose (74-99) mg/dL Plasma Lactic Acid [place] 1.5 (0.7-2.0) mmol/L Calcium (8.4-10.2) mg/dL Total Bilirubin (0.2-1.3) mg/dL AST (14-36) U/L ALT (4-34) U/L Alkaline Phosphatase (38-126) U/L Total Protein (6.3-8.2) g/dL Albumin (3.5-5.0) g/dL Amylase (30-110) U/L Lipase (23-300) U/L HCG, Qual Urine Color Urine Appearance (Clear) Urine pH (5.0-8.0) Ur Specific [place] (1.001-1.035) Urine Protein (Negative) Urine Glucose (UA) (Negative) Urine Ketones (Negative) Urine Blood (Negative) Urine Nitrite (Negative) Urine Bilirubin (Negative) Urine Urobilinogen (<2.0) mg/dL Ur Leukocyte Esterase (Negative) Urine RBC (0-5) /hpf Urine WBC (0-5) /hpf Ur Squamous Epith Cells (0-4) /hpf Urine Mucus (None) /hpf Urine HCG, Qual Not Detected (Not Detectd) - Radiology Data Radiology results: report reviewed, image reviewed Disposition Clinical Impression: Right ureteral calculus, Intractable abdominal pain, Intractable nausea and vomiting Disposition: ADMITTED IP TO THIS HOSP
[2023-12-13] MEDS: SODIUM CHLORIDE 0.9% 1,000 ML IV STA (12:09)
[2023-12-13] MEDS: KETOROLAC 15 MG/ML 1 ML VIAL IVP STA (12:10)
[2023-12-13] MEDS: ONDANSETRON 4 MG/2 ML VIAL IVP STA (12:10)
[2023-12-13] MEDS: MORPHINE SULFATE 4 MG/ML SYRINGE IVP STA (12:11)
[2023-12-13 12:31] LABS: ALT 29 U/L (4-34); AST 25 U/L (14-36); African American GFR (CKD) >90 (>60 ml/min/1.73 sqM); Albumin 5.1 g/dL (3.5-5.0); Alkaline Phosphatase 96 U/L (38-126); Amylase 62 U/L (30-110); Anion Gap 18 mmol/L; Appearance,Urine Clear (Clear); Bilirubin,Urine Negative (Negative); Blood Urea Nitrogen 17 mg/dL (7-17); Blood,Urine Small (Negative); Carbon Dioxide 14 mmol/L (22-30); Chloride 107 mmol/L (98-107); Color,Urine Light Yellow; Glucose 74 mg/dL (74-99); Glucose,Urine (UA) Negative (Negative); Ketones,Urine 4+ (Negative); Leukocyte Esterase,Urine Negative (Negative); Lipase 146 U/L (23-300); Mucus,Urine Rare /hpf; Nitrite,Urine Negative (Negative); Non-African American GFR(CKD) 90 (>60 ml/min/1.73 sqM); Potassium 4.4 mmol/L (3.5-5.1); Protein,Urine 1+ (Negative); RBC,Urine 7 /hpf (0-5); Sodium 139 mmol/L (137-145); Specific Gravity,Urine 1.031 (1.001-1.035); Squamous Epithelial Cell,Urine 1 /hpf (0-4); Total Bilirubin 1.5 mg/dL (0.2-1.3); Total Protein 7.7 g/dL (6.3-8.2); Urobilinogen,Urine <2.0 mg/dL (<2.0); WBC,Urine 14 /hpf (0-5)
[2023-12-13 12:34] LABS: Basophils % (A) 0 %; Eosinophils % (A) 0 %; HCT 41.8 % (34.0-46.0); HGB 13.6 gm/dL (11.4-16.0); Lymphocytes # (A) 1.6 k/uL (1.0-4.8); Lymphocytes % (A) 10 %; MCH 31.4 pg (25.0-35.0); MCHC 32.5 g/dL (31.0-37.0); MCV 96.7 fL (80.0-100.0); Mean Platelet Volume 8.4; Monocytes # (A) 1.1 k/uL (0-1.0); Monocytes % (A) 7 %; Neutrophils # (A) 12.2 k/uL (1.3-7.7); Neutrophils % (A) 82 %; Platelet Count 290 k/uL (150-450); RBC 4.32 m/uL (3.80-5.40); RDW 12.3 % (11.5-15.5)
[2023-12-13 12:45] LABS: HCG,Qualitative Serum Not Detected
[2023-12-13] MEDS ORDERED: HYDROmorphone 1 MG/ML 1 ML SYRINGE IVP PRN (12:54)
[2023-12-13] MEDS ORDERED: NALOXONE 0.4 MG/ML 1 ML VIAL IV PRN (12:54)
[2023-12-13] MEDS ORDERED: KETOROLAC 15 MG/ML 1 ML VIAL IVP PRN (12:54)
[2023-12-13] MEDS ORDERED: ACETAMINOPHEN TAB 325 MG TAB PO PRN (12:54)
[2023-12-13] MEDS ORDERED: HYDROmorphone 0.5 MG/0.5 ML SYRINGE IVP PRN (12:54)
[2023-12-13] MEDS ORDERED: IBUPROFEN 400 MG TAB PO PRN (12:54)
[2023-12-13] MEDS ORDERED: ONDANSETRON ODT 4 MG TAB PO PRN (12:55)
[2023-12-13] MEDS ORDERED: HYDROcodone/APAP 5-325MG 1 EACH TAB PO PRN (12:55)
[2023-12-13] MEDS: SODIUM CHLORIDE 0.9% 1,000 ML IV SCH (13:29)
[2023-12-13] MEDS: LACTATED RINGERS 1,000 ML BAG IV STA (15:02)
[2023-12-13] MEDS: ONDANSETRON 4 MG/2 ML VIAL IVP PRN (15:02)
[2023-12-13] MEDS: DEXAMETHASONE SOD PHOSPHATE 4 MG/ML 1 ML VIAL IVP STA (15:05)
[2023-12-13] MEDS: IV FLUID CONTINUATION 1,000 ML IV ONE (15:07)
[2023-12-13] MEDS ORDERED: MIDAZOLAM 2 MG/2 ML VIAL ONE (15:26)
[2023-12-13] MEDS ORDERED: LIDOCAINE 1% INJ 10MG/ML (20 ML MDV) ONE (15:26)
[2023-12-13] MEDS ORDERED: fentaNYL (PF) 50 MCG/ML 2 ML AMP ONE (15:26)
[2023-12-13] MEDS ORDERED: PROPOFOL 10 MG/ML 20 ML VIAL IV ONE (15:26)
--- NOTE | 2023-12-13 15:33 | P.GSHP ---
History of Present Illness H&P Date: 12/13/23 Chief Complaint: Right renal colic The patient is a 23-year-old white female with a family history of urolithiasis. She passed a kidney stone several years ago. She presented yesterday with right renal colic and was found to have evidence of mild right hydronephrosis due to a 6 mm calculus at the right ureterovesical junction. She was discharged home with analgesics and antiemetics but returned today with intractable symptoms. - Constitutional Constitutional: Denies chills, Denies fever - Gastrointestinal Gastrointestinal: Reports nausea, Reports vomiting - Genitourinary (Female) Genitourinary: Reports flank pain, Reports kidney stones Past Medical History Past Medical History: No Reported History History of Any Multi-Drug Resistant Organisms: None Reported Past Surgical History: No Surgical Hx Reported Additional Past Surgical History / Comment(s): Past Anesthesia/Blood Transfusion Reactions: No Reported Reaction Past Psychological History: No Psychological Hx Reported Smoking Status: Never smoker Past Alcohol Use History: None Reported Past Drug Use History: None Reported - Past Family History Mother Family Medical History: No Reported History Medications and Allergies Home Medications Medication Instructions Recorded Confirmed Type Vit No.179/Iron/Folic 1 tablet PO DAILY 07/20/23 12/13/23 History [ Tablet] Ondansetron Odt [Zofran Odt] 4 mg PO Q8HR PRN #10 tab 12/12/23 12/13/23 Rx Tamsulosin [Flomax] 0.4 mg PO DAILY #7 cap 12/12/23 12/13/23 Rx HYDROcodone/APAP 5-325MG [[place] 5] 1 tab PO Q6HR PRN 12/13/23 12/13/23 History Allergies Allergy/AdvReac Type Severity Reaction Status Date / Time No Known Allergies Allergy Verified 12/13/23 15:00 Surgical - Exam Vital Signs Temp Pulse Resp BP Pulse Ox 99 F 109 H 18 109/73 100 12/13/23 11:39 12/13/23 11:39 12/13/23 11:39 12/13/23 11:39 12/13/23 11:39 - General well developed, well nourished, moderate distress - Respiratory normal respiratory effort - Abdomen Abdomen: soft, tender (Right lower quadrant tenderness), no guarding, no rigid, no rebound, no distended - Psychiatric oriented to time, oriented to person, oriented to place, speech is normal, memory intact Results - Labs 12/13/23 11:52 12/13/23 11:52 Abnormal Lab Results - Last 24 Hours (Table) 12/13/23 12/13/23 12/13/23 Range/Units 11:52 11:52 11:52 WBC 15.0 H (3.8-10.6) k/uL Neutrophils # 12.2 H (1.3-7.7) k/uL Monocytes # 1.1 H (0-1.0) k/uL Carbon Dioxide 14 L (22-30) mmol/L Total Bilirubin 1.5 H (0.2-1.3) mg/dL Albumin 5.1 H (3.5-5.0) g/dL Urine Protein 1+ H (Negative) Urine Ketones 4+ H (Negative) Urine Blood Small H (Negative) Urine RBC 7 H (0-5) /hpf Urine WBC 14 H (0-5) /hpf Urine Mucus Rare H (None) /hpf Diabetes panel 12/13/23 Range/Units 11:52 Sodium 139 (137-145) mmol/L Potassium 4.4 (3.5-5.1) mmol/L Chloride 107 (98-107) mmol/L Carbon Dioxide 14 L (22-30) mmol/L BUN 17 (7-17) mg/dL Creatinine 0.90 (0.52-1.04) mg/dL Glucose 74 (74-99) mg/dL Calcium 10.0 (8.4-10.2) mg/dL AST 25 (14-36) U/L ALT 29 (4-34) U/L Alkaline Phosphatase 96 (38-126) U/L Total Protein 7.7 (6.3-8.2) g/dL Albumin 5.1 H (3.5-5.0) g/dL Calcium panel 12/13/23 Range/Units 11:52 Calcium 10.0 (8.4-10.2) mg/dL Albumin 5.1 H (3.5-5.0) g/dL Pituitary panel 12/13/23 Range/Units 11:52 Sodium 139 (137-145) mmol/L Potassium 4.4 (3.5-5.1) mmol/L Chloride 107 (98-107) mmol/L Carbon Dioxide 14 L (22-30) mmol/L BUN 17 (7-17) mg/dL Creatinine 0.90 (0.52-1.04) mg/dL Glucose 74 (74-99) mg/dL Calcium 10.0 (8.4-10.2) mg/dL Adrenal panel 12/13/23 Range/Units 11:52 Sodium 139 (137-145) mmol/L Potassium 4.4 (3.5-5.1) mmol/L Chloride 107 (98-107) mmol/L Carbon Dioxide 14 L (22-30) mmol/L BUN 17 (7-17) mg/dL Creatinine 0.90 (0.52-1.04) mg/dL Glucose 74 (74-99) mg/dL Calcium 10.0 (8.4-10.2) mg/dL Total Bilirubin 1.5 H (0.2-1.3) mg/dL AST 25 (14-36) U/L ALT 29 (4-34) U/L Alkaline Phosphatase 96 (38-126) U/L Total Protein 7.7 (6.3-8.2) g/dL Albumin 5.1 H (3.5-5.0) g/dL - Imaging CT scan - abdomen: report reviewed, image reviewed Assessment and Plan (1) Hydronephrosis concurrent with and due to calculi of kidney and ureter Current Visit: No Status: Acute Code(s): N13.2 - HYDRONEPHROSIS WITH RENAL AND URETERAL CALCULOUS OBSTRUCTION SNOMED Code(s): 443094924 (2) Right ureteral calculus Current Visit: Yes Status: Acute Code(s): N20.1 - CALCULUS OF URETER SNOMED Code(s): 96764286 Plan: Cystoscopy, right ureteroscopy with Holmium laser lithotripsy and possible stone basketing, possible right ureteral stent insertion. The procedure has been reviewed in detail with the patient and her . They have been made aware of potential risks, which include anesthesia, bleeding, infection, inability to remove the calculus, and ureteral injury. Time with Patient: Greater than 30
[2023-12-13] MEDS: IOPAMIDOL-370 100ML BTL MISCELLANE ONE (15:51)
--- NOTE | 2023-12-13 16:18 | FL ---
Fluoroscopy History: Cysto for Rt Ureteral Stone RT side ureteroscopy and RT side stent placement. FL time 18.1 seconds. DAP [id number] GYCM2. 2 images se nt into PACS. Dr Adkins.
[2023-12-13 16:21] VITALS: TEMP 97.1
--- NOTE | 2023-12-13 16:30 | P.OP ---
Date of Procedure: 12/13/23 Preoperative Diagnosis: Right ureteral calculus Postoperative Diagnosis: Same Procedure(s) Performed: Cystoscopy, right ureteroscopy, right ureteral balloon dilation with removal of right ureteral calculus, right ureteral stent insertion Anesthesia: BRIAN Surgeon: Lior Adkins Estimated Blood Loss (ml): 0 IV fluids (ml): 300 Pathology: other (Right ureteral calculus, sent for chemical analysis) Condition: stable Disposition: PACU Indications for Procedure: The patient is a 23-year-old white female with a family history of urolithiasis. She passed a kidney stone several years ago. She presented yesterday with right renal colic and was found to have evidence of mild right hydronephrosis due to a 6 mm calculus at the right ureterovesical junction. She was discharged home with analgesics and antiemetics but returned today with intractable sympto ms. She has elected to undergo ureteroscopic removal of the calculus. Operative Findings: Narrowed intramural right ureter. Following balloon dilation, the calculus passed spontaneously into the bladder. Description of Procedure: The patient was taken to the operating room and placed in the dorsolithotomy position, with legs supported in Tripp stirrups. The external genitalia was prepped and draped sterilely. The 30 lens was used to introduce the 21-Citizen [place] Galdamez cystoscopic sheath through the urethra and into the bladder under direct vision. The bladder was examined in its entirety. Both ureteral orifices were normal anatomic location and configuration. No tumors or foreign bodies were seen. The Galdamez semirigid ureteroscope was advanced into the bladder, and the right ureteral orifice was cannulated. The ureteroscope could be advanced only a short distance due to narrowing of the intramural portion of the ureter. A 0.035 inch Glidewire was passed through the ureteroscope and up the right ureter. The ureteroscope was removed, and a 15 Citizen [place], 4 cm balloon dilating catheter was passed over the wire. The calculus was radiopaque, and the balloon was inflated just distal to the calculus. The balloon dilating catheter was then removed, and ureteroscopy was repeated. The calculus was visualized, and passed distally into the bladder. No additional calculi were seen. The Glidewire was passed up to the right renal pelvis. Some looping of the wire was noted at the level of the UPJ. The Glidewire was backloaded into the cystoscope, which was passed into the bladder. A 24 cm, 4.8 [place] double-J ureteral stent was placed over the wire. Proper stent positioning was verified fluoroscopically and endoscopically. The bladder was emptied and the calculus drained from the bladder. It was sent for chemical analysis. The cystoscope was removed, and the string attached to the stent was taped to the patient's right medial thigh using a Tegaderm dressing. The patient tolerated the procedure well and was taken to the recovery room in stable condition. [facility] Report: Procedure Acuity: Urgent Stone Size and Location: 3 to 4 mm, right distal ureter Ureteral Dilation: Balloon Dilation Ureteral Access Sheath Used: No Stone Sent for Analysis: Yes All Stones/Fragments Were Removed with a Basket: No Complications: No Preoperative Antibiotics Given: No Stent Placed: Yes If Stent Placed, Was String Left Attached: Yes If Stent Placed, When is it to be Removed: 1 week Discharge Medications: Tamsulosin, Zofran, Esopus
--- NOTE | 2023-12-13 17:20 | P.DS ---
Providers Date of admission: 12/13/23 13:13 Expected date of discharge: 12/13/23 Attending physician: Lior Adkins Primary care physician: Nell Madrigal - Discharge Diagnosis(es) (1) Hydronephrosis concurrent with and due to calculi of kidney and ureter Current Visit: No Status: Acute (2) Right ureteral calculus Current Visit: Yes Status: Acute Hospital Course: The patient presented with intractable right renal colic due to a right distal ureteral calculus. She underwent ureteroscopic removal of the calculus and felt considerably better postoperatively. She is thus discharged home. Procedures: Cystoscopy, right ureteroscopy, balloon dilation of right distal ureter, right ureteral stent insertion on December 13, 2023. Patient Condition at Discharge: Good Plan - Discharge Summary New Discharge Prescriptions: No Action Vit No.179/Iron/Folic [ Tablet] 1 tablet PO DAILY Tamsulosin [Flomax] 0.4 mg PO DAILY #7 cap Ondansetron Odt [Zofran Odt] 4 mg PO Q8HR PRN #10 tab PRN Reason: Nausea HYDROcodone/APAP 5-325MG [[place] 5] 1 tab PO Q6HR PRN PRN Reason: Pain Discharge Medication List Vit No.179/Iron/Folic [ Tablet] 1 tablet PO DAILY 07/20/23 [History] Ondansetron Odt [Zofran Odt] 4 mg PO Q8HR PRN #10 tab 12/12/23 [Rx] Tamsulosin [Flomax] 0.4 mg PO DAILY #7 cap 12/12/23 [Rx] HYDROcodone/APAP 5-325MG [[place] 5] 1 tab PO Q6HR PRN 12/13/23 [History] Follow up Appointment(s)/Referral(s): Nell Madrigal MD [Primary Care Provider] - 1-2 days Lior Adkins MD [STAFF PHYSICIAN] - 12/20/23 Patient Instructions/Handouts: Cystoscopy (DC), Ureteral Stent Placement (DC) Activity/Diet/Wound Care/Special Instructions: Diet as tolerated. Activity as tolerated. Drink plenty of fluids. Avoid pulling on string attached to stent. Discharge Disposition: HOME SELF-CARE
[2023-12-13 17:24] VITALS: BP 108/57; PULSE 86; RESP 18
[2023-12-14] MEDS ORDERED: TAMSULOSIN 0.4 MG CAP.ER.24H PO SCH (09:00)
[2023-12-14] MEDS ORDERED: PRENATAL VIT-IRON-FOLIC ACID 1 EACH TABLET PO SCH (09:00)
== END 2023-12-13 17:35 | disposition home or self-care (01) ==
LOC: EC 11:39 → 5NMEDONC 13:13
PROVIDERS: ADMIT Urology; ATTEND Urology
DX: N13.2 Hydronephrosis with renal and ureteral calculous obstruction (principal); Z87.442 Personal history of urinary calculi
CPT/HCPCS: 96365; 96375; 99284; 36415; 81025 ×2; 80053; 82150; 83605; 83690; 85025; 81001; 84703; 87040; 82365; 87086; 52352; 52332; G0378; C2625; C1769; J2250; J2270; J1100; J2405; J0696; J2001; J3010; J1885; J2704; Q9967

== ENCOUNTER → 2024-12-19 | Outpatient (CLI) | payer BC ==
[2024-12-19 15:11] LABS: HCT 40.4 % (37.2-46.3); HGB 13.1 g/dL (12.0-15.0); MCH 31.0 pg (27.0-32.0); MCHC 32.4 g/dL (32.0-37.0); MCV 95.5 FL (80.0-97.0); NRBC Per 100 WBC 0 X 10*3/uL (0.00-0.01); Platelet Count 212 X 10*3/uL (140-440); RBC 4.23 X 10*6/uL (4.10-5.20); RDW 11.8 % (11.5-14.5); WBC 6.66 X 10*3/uL (4.50-10.00)
[2024-12-19 15:38] LABS: ALT 14 U/L (8-44); AST 17 U/L (13-35); Anion Gap 11.00 mmol/L (4.00-12.00); BUN/Creat Ratio 19.83 Ratio (12.00-20.00); Blood Urea Nitrogen 11.9 mg/dL (9.0-27.0); Calcium 9.1 mg/dL (8.7-10.3); Carbon Dioxide 22.0 mmol/L (21.6-31.8); Chloride 105 mmol/L (96-109); Cholesterol 169.00 mg/dL (0.00-200.00); Glucose 81 mg/dL (70-110); HDL Cholesterol 70.10 mg/dL (40.00-60.00); LDL Cholesterol,Calculated 86.2 mg/dL (0.0-131.0); Potassium 4.5 mmol/L (3.5-5.5); Sodium 138 mmol/L (135-145); Triglycerides 63.40 mg/dL (0.00-149.00); VLDL Calculation 12.68 mg/dL (5.00-40.00)
== END | disposition home or self-care (01) ==
LOC: LABWHC1 09:12
PROVIDERS: ATTEND Internal Medicine Cardiovascular Disease
DX: E78.2 Mixed hyperlipidemia (principal); R00.2 Palpitations
CPT/HCPCS: 36415; 80048; 80061; 84443; 84450; 84460; 85027